=== PATIENT | female | born 1975 | race Caucasian/White ===

== ENCOUNTER 2019-02-18 18:26 | Emergency (ER) | payer MEDICAID ==
[~2019-02-18] VITALS: Ht 157.5 cm; Wt 99.8 kg
[2019-02-18 18:30] VITALS: BP 141/80
[2019-02-18] MEDS ORDERED: AZITHROMYCIN 250 MG TABLET ONE (19:23)
[2019-02-18] MEDS ORDERED: FLUCONAZOLE (100 MG) 100 MG TABLET ONE (19:23)
[2019-02-18] MEDS ORDERED: CEFTRIAXONE 500 MG VIAL ONE (19:23)
[2019-02-18] MEDS ORDERED: FLUCONAZOLE (100 MG) 100 MG TABLET PO ONE (19:30)
[2019-02-18] MEDS ORDERED: AZITHROMYCIN 250 MG TABLET PO ONE (19:30)
[2019-02-18] MEDS ORDERED: CEFTRIAXONE 500 MG VIAL IM ONE (19:30)
== END 2019-02-18 20:31 | disposition home or self-care (01) ==
LOC: ER 18:30
DX: N76.0 Acute vaginitis (principal)
CPT/HCPCS: 84703; 87086; 87110; 87491; 87591; 96372; 99283; J0696

== ENCOUNTER 2023-03-08 19:29 | Emergency (ER) | payer MEDICAID, OTHER ==
[~2023-03-08] VITALS: Ht 157.5 cm; Wt 99.8 kg
[2023-03-08] MEDS ORDERED: MORPHINE SULFATE INJ 2 MG/ML DISP.SYRIN IV ONE (20:00)
--- NOTE | 2023-03-08 20:15 | NUR ---
18GA TO LEFT AC ESTABLISHED
--- NOTE | 2023-03-08 20:18 | NUR ---
BLOOD WORK COLLECTED AND SENT TO LAB
[2023-03-08 20:35] LABS: BASOPHILS % (AUTO) 0.5 % (0.0-2.0); EOSINOPHILS % (AUTO) 1.5 % (0.0-6.0); HEMATOCRIT 39 % (33-45); HEMOGLOBIN 12.9 g/dL (11.5-14.8); LYMPHOCYTES # (AUTO) 3.7 K/uL (0.8-4.8); LYMPHOCYTES % (AUTO) 40.1 % (20.0-44.0); MEAN CORPUSCULAR HGB CONC 33 g/dl (31.0-36.0); MEAN CORPUSCULAR VOLUME 91 fL (82-100); MONOCYTES # (AUTO) 0.6 K/uL (0.1-1.30); MONOCYTES % (AUTO) 6.1 % (2.0-12.0); NEUTROPHILS # (AUTO) 4.8 K/uL (1.8-8.9); NEUTROPHILS % (AUTO) 51.8 % (43.0-81.0); PLATELET COUNT (AUTO) 335 K/uL (150-450); RED BLOOD CELL COUNT(AUTO) 4.27 MIL/uL (4.0-5.2); WHITE BLOOD COUNT (AUTO) 9.3 K/uL (4.3-11.0)
[2023-03-08 20:38] LABS: BILIRUBIN,URINE NEGATIVE (NEGATIVE); COLOR,URINE YELLOW (YELLOW); LEUKOCYTE ESTERASE ,URINE NEGATIVE (NEGATIVE); NITRITE, URINE NEGATIVE (NEGATIVE); PROTEIN,URINE NEGATIVE (NEGATIVE); UGLUCOSE NEGATIVE (NEGATIVE); UROBILINOGEN,URINE 0.2 EU/dL (0.2)
[2023-03-08 20:44] LABS: CALCIUM, SERUM 9.3 mg/dL (8.5-10.1); CREATININE 0.7 mg/dL (0.6-1.3); POTASSIUM 4.1 mmol/L (3.5-5.1)
[2023-03-08 20:49] LABS: ALBUMIN 3.3 g/dL (3.4-5.0); BILIRUBIN,TOTAL 0.2 mg/dL (0.2-1.0); TOTAL PROTEIN, SERUM 7.2 g/dL (6.4-8.2)
[2023-03-08] MEDS ORDERED: MORPHINE SULFATE INJ 4 MG/ML DISP.SYRIN ONE (20:49)
[2023-03-08] MEDS ORDERED: ACETAMINOPHEN ES 500 MG TABLET ONE (20:55)
[2023-03-08 21:00] LABS: BACTERIA,URINE Rare /HPF (None Seen); SQUAMOUS EPITHELIAL CELL,UR 0-2 /HPF (None Seen); WBC,URINE NONE SEEN /HPF (0-3)
[2023-03-08] MEDS ORDERED: ACETAMINOPHEN ES 500 MG TABLET PO ONE (21:00)
--- NOTE | 2023-03-08 21:00 | NUR ---
89 BIBSELF FOR EPIGASTRIC ABD PAIN X 2DAYS, WITH 2 EPISODES OF N/V. PT A/OX4. TOLERATING R/A WELL WITH NO RESP DISTRESS. SAFETY MEASURES IN PLACE.
[2023-03-08] MEDS ORDERED: FAMO20TA8 PO (23:13)
[2023-03-08] MEDS ORDERED: ONDA4TAB11 PO (23:13)
--- NOTE | 2023-03-08 23:33 | NUR ---
Patient discharged to home in stable condition. Written and verbal after care instructions given. Patient verbalizes understanding of instruction.
[2023-03-09 00:38] VITALS: BP 130/80
== END 2023-03-08 23:33 | disposition home or self-care (01) ==
LOC: ER 19:33
DX: K43.9 Ventral hernia without obstruction or gangrene (principal); K83.1 Obstruction of bile duct; R10.13 Epigastric pain; R11.2 Nausea with vomiting, unspecified
CPT/HCPCS: 99284; 74176; 85025; 80048; 83690; 80076; 84703; 81001; 36415; J2270